=== PATIENT | female | born 1980 | race African-American/Black ===

== ENCOUNTER 2018-06-20 18:56 | Emergency (ER) | payer MEDICAID ==
[~2018-06-20] VITALS: Ht 167.6 cm; Wt 93.6 kg
--- NOTE | 2018-06-20 19:20 | NUR ---
FIRST CONTACT WITH PT. PT STATES THAT SHE HAS BEEN HAVING TERRIBLE HEADACHES AND EXTREME DIZINESS AND NAUSEA X 3 DAYS. PT REPORTS VOMITING SEVERAL TIMES IN PAST COUPLE DAYS. PT'S AOX4. RESPS EVEN AND UNLABORED. ALL MONITORS IN PLACE. CALL LIGHT WITHIN REACH.
[2018-06-20] MEDS ORDERED: KETOROLAC 30 MG/1 ML IM ONE (19:30)
[2018-06-20] MEDS ORDERED: METOCLOPRAMIDE 10MG TABLET PO ONE (19:30)
[2018-06-20] MEDS ORDERED: DIPHENHYDRAMINE 25 MG CAPSULE PO ONE (19:30)
[2018-06-20] MEDS ORDERED: KETOROLAC 30 MG/1 ML ONE (19:40)
[2018-06-20] MEDS ORDERED: DIPHENHYDRAMINE 25 MG CAPSULE ONE (19:41)
[2018-06-20] MEDS ORDERED: METOCLOPRAMIDE 10MG TABLET ONE (19:41)
--- NOTE | 2018-06-20 19:50 | NUR ---
PT MEDICATED PER EMAR. PT TOLERATED WELL. PT'S AOX4. RESPS EVEN AND UNLABORED.
[2018-06-20 19:59] LABS: ALBUMIN 3.4 g/dL (3.4-5.0); ANION GAP 4 mmol/L (5-15); CHLORIDE 109 mmol/L (98-107)
[2018-06-20 20:03] LABS: BASOPHILS # (AUTO) 0.01 x10^3/uL (0-0.1); BASOPHILS % (AUTO) 0 % (0-1); CREATININE 0.72 mg/dL (0.55-1.02); EOSINOPHILS % (AUTO) 2 % (1-7); LYMPHOCYTES # (AUTO) 2.23 x10^3/uL (1-3.4); LYMPHOCYTES % (AUTO) 37 % (22-44); MD NO; MEAN CORPUSCULAR HEMOGLOBIN 22.7 pg (27.0-34.8); MEAN CORPUSCULAR HGB CONC 31.2 g/dL (32.4-35.8); MEAN CORPUSCULAR VOLUME 72.6 fL (80-100); MEAN PLATELET VOLUME 8.6 fL (7.4-10.4); MONOCYTES # (AUTO) 0.54 x10^3/uL (0.2-0.8); MONOCYTES % (AUTO) 9 % (2-9); NEUTROPHILS # (AUTO) 3.15 x10^3/uL (1.8-6.8); NEUTROPHILS % (AUTO) 52 % (42-75); PLATELET COUNT 330 x10^3/uL (130-400); RED BLOOD COUNT 3.93 x10^6/uL (3.82-5.3); RED CELL DISTRIBUTION WIDTH 17.4 % (9.6-15.2)
--- NOTE | 2018-06-20 20:20 | NUR ---
PT PROVIDED WARM BLANKET AT THIS TIME. PT RESTING IN [facility]. RESPS EVEN AND UNLABORED.
--- NOTE | 2018-06-20 21:00 | NUR ---
EDMD AT BEDSIDE TO EXPLAIN ALL RESULTS AT THIS TIME. AWAITING DC.
[2018-06-20 21:41] VITALS: BP 106/67
--- NOTE | 2018-06-20 21:42 | NUR ---
PT GIVEN DC INSTRUCTIONS. PT AMB TO DC WITH STEADY GAIT. NO ACUTE DISTRESS AT DC. PT'S AOX4. RESPS EVEN AND UNLABORED.
== END 2018-06-20 21:43 | disposition home or self-care (01) ==
LOC: ED 20:30
DX: D50.0 Iron deficiency anemia secondary to blood loss (chronic) (principal); R51 Headache
CPT/HCPCS: 36415; 80048; 82040; 84703; 85025; 93005; 96372; 99284; J1885; Q0163

== ENCOUNTER 2019-09-08 08:49 | Emergency (ER) | payer MEDICAID ==
[~2019-09-08] VITALS: Ht 167.6 cm; Wt 93.3 kg
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
[2019-09-08] MEDS ORDERED: HYDROcodone/APAP 5/325 TABLET PO ONE (09:30)
[2019-09-08] MEDS ORDERED: HYDROcodone/APAP 5/325 TABLET ONE (09:36)
--- NOTE | 2019-09-08 09:44 | NUR ---
PT PROVIDED W/ ICE PACK FOR L ANKLE.
[2019-09-08 10:27] VITALS: BP 119/81
--- NOTE | 2019-09-08 10:27 | NUR ---
PT RESTING ON GURNEY. NADN. OWUSU.
--- NOTE | 2019-09-08 10:34 | NUR ---
PT CHART REVIEWED AND PLACED FOR RECHECK.
== END 2019-09-08 11:14 | disposition home or self-care (01) ==
LOC: ED 10:41
DX: S93.492A Sprain of other ligament of left ankle, initial encounter (principal); W19.XXXA Unspecified fall, initial encounter; Y93.89 Activity, other specified; Y92.89 Other specified places as the place of occurrence of the external cause; Y99.0 Civilian activity done for income or pay
CPT/HCPCS: 99284